=== PATIENT | female | born 1985 | race Caucasian/White ===

== ENCOUNTER 2021-02-24 22:02 | Emergency (ER) | payer OTHER, MEDICAID ==
[2021-02-24] MEDS ORDERED: Diphtheria,Pertussis(Acell),Tetanus Vaccine 0.5 ML Syringe IM ONE (22:35)
--- NOTE | 2021-02-24 22:42 | EDM.PDOC ---
ED HPI GENERAL MEDICAL PROBLEM - General Chief Complaint: Laceration Stated Complaint: ATTACKED BY DOG Time Seen by Provider: 02/24/21 22:05 Source of Information: Reports: Patient History Limitations: Reports: No Limitations - History of Present Illness INITIAL COMMENTS - FREE TEXT/NARRATIVE: Arielle is a 35 year old female who presents to ER with complaints of a dog bite to her left hand. States was out walking her 7 month old puppy when 3 large dogs came under a fence and attacked her little dog. In the process of trying to get the large dogs off, got her hand bit. Unsure if bot bu her own dog or the others. Her dog has been vaccinated. States her dog "was tore up" and trying to fight against them when they were trying to pull the large dogs off. Has discomfort to hand, wrapped hand prior to coming. Unknown last tetanus. Onset: Today, Sudden Duration: Minutes: Location: Reports: Upper Extremity, Left Quality: Reports: Ache, Sharp Severity: Moderate Associated Symptoms: Reports: No Other Symptoms Treatments [employer] NEGATIVE: Reports: Dressing(s) - Related Data Allergies Allergy/AdvReac Type Severity Reaction Status Date / Time gentamicin [Gentamicin] Allergy Redness Verified 11/21/15 15:01 Home Meds: Home Meds [id number]/Ferrous Fumarate/FA [ Multivitamins] 1 tab PO DAILY 08/20/14 [History] Ibuprofen 3 tab PO Q8H PRN 09/27/14 [History] Acetaminophen [Tylenol] 3 tab PO PRN 10/17/14 [History] Dextroamphetamine/Amphetamine [Adderall 20 mg Tablet] 20 mg PO DAILY 11/21/15 [History] Past Medical History Psychiatric History: Reports: ADHD Social & Family History - Tobacco Use Tobacco Use Status *Q: Current Every Day Tobacco User ED ROS GENERAL - Review of Systems Review Of Systems: See Below Constitutional: Reports: No Symptoms HEENT: Reports: No Symptoms Respiratory: Reports: No Symptoms Cardiovascular: Reports: No Symptoms Endocrine: Reports: No Symptoms GI/Abdominal: Reports: No Symptoms Musculoskeletal: Reports: Hand Pain Skin: Reports: Wound (dog bite to left hand) Neurological: Reports: No Symptoms ED EXAM, SKIN/RASH Exam: See Below Exam Limited By: No Limitations General Appearance: Alert, WD/WN, Mild Distress Extremities: Normal Range of Motion, Normal Capillary Refill Neurological: Alert, Oriented Skin: Warm, Wound/Incision (has a 3 mm puncture wound to base of left thumb. Cleansed in hibiclens and water. Steri strip applied after bacitracin applied. Covered with bandage. ) Location, Skin: Upper Extremity, Left Characteristics: Linear Course - Orders/Labs/Meds Orders: Active Orders 24 hr Category Date Time Status Vaccines to be Administered [RC] PER UNIT ROUTINE Care 02/24/21 22:35 Active Meds: Medications Discontinued Medications Generic Name Dose Route Start Last Admin Trade Name Lucas PRN Reason Stop Dose Admin Diphtheria/Tetanus/Acell Pertussis 0.5 ml 02/24/21 22:35 Diphtheria,Pertussis(Acell),Tetanus Vaccine 0.5 Ml Syringe IM 02/24/21 22:36 .ONCE ONE Departure - Departure Time of Disposition: 22:42 Disposition: Home, Self-Care 01 Condition: Good Clinical Impression: Dog bite of hand, Puncture wound - Discharge Information *PRESCRIPTION DRUG MONITORING PROGRAM REVIEWED*: No *COPY OF PRESCRIPTION DRUG MONITORING REPORT IN PATIENT KAVON: No Instructions: Animal Bite, Adult, [id number] Referrals: Bruce Acosta MD [Primary Care Provider] - Forms: ED Department Discharge Additional Instructions: 1. Keep skin clean and dry 2. Allow steri strips to fall off 3. Cover with triple antibiotic ointment and bandage 4. Follow up with primary care provider if note increase redness, drainage, warmth or increased pain - My Orders Last 24 Hours: My Active Orders 02/24/21 22:35 Vaccines to be Administered [RC] PER UNIT ROUTINE - Assessment/Plan Last 24 Hours: My Active Orders 02/24/21 22:35 Vaccines to be Administered [RC] PER UNIT ROUTINE
[2021-02-25 02:53] VITALS: BP 106/81; PULSE 90
== END 2021-02-24 23:12 | disposition home or self-care (01) ==
LOC: VM.ED 22:02
DX: S61.452A Open bite of left hand, initial encounter (principal); Z88.1 Allergy status to other antibiotic agents; Z72.0 Tobacco use; Z23 Encounter for immunization; W54.0XXA Bitten by dog, initial encounter; Y93.01 Activity, walking, marching and hiking
CPT/HCPCS: 90471; 90715; 99283